=== PATIENT | female | born 1980 | race Caucasian/White ===

== ENCOUNTER → 2017-07-13 | Outpatient (CLI) | payer OTHER ==
[~2017-07-13] MED LIST: GADAVIST IV PRN
--- NOTE | 2017-07-13 15:09 | DIAGNOSTIC IMAGING REPORT ---
MRI OF THE BRAIN WITHOUT AND WITH IV CONTRAST SEIZURE PROTOCOL CLINICAL HISTORY: Seizure disorder. COMPARISON STUDY: None available at time of interpretation. TECHNIQUE: Utilizing a 1.5 Claudia magnet and dedicated coil, multiplanar, multiecho imaging of the brain was performed pre and postcontrast administration. IV administration of 9.6 mL of Gadavist contrast was uneventful. Thin cut coronal T2 imaging was performed according to seizure protocol. FINDINGS: There are no foci of restricted diffusion. No acute intracranial hemorrhage or midline shift is present. Note is made of a markedly enlarged posterior fossa which contains CSF. There is clinical indication with the fourth ventricle which is not significantly dilated. There is inversion of the torcula. 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 The optic nerves appear to be within normal limits. Flow-voids for the major intracranial vessels are present. There is no intracranial mass or pathologic enhancement. No foci of significant signal abnormality identified within the brain parenchyma. Orbits are unremarkable. There is minimal mucosal thickening of the maxillary sinuses. Calvarial signal is normal. IMPRESSION: 1. 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 2. No acute intracranial findings. 3. No intracranial mass or pathologic enhancement. Electronically signed by: Geronimo Chavez M.D. 07/13/2017 3:08 PM Dictated Date/Time: 07/13/2017 1:18 PM
== END | disposition home or self-care (01) ==
LOC: C.MRIBC 12:02
PROVIDERS: ATTEND Psychiatry & Neurology Neurology
DX: G40.909 Epilepsy, unspecified, not intractable, without status epilepticus (principal)

== ENCOUNTER → 2017-07-13 | Outpatient (CLI) | payer OTHER ==
--- NOTE | 2017-07-13 16:37 | EEG Procedure Note ---
EEG Procedure Note Date of Service Jul 13, 2017. Start / End Times Start Time: 2:53 PM End Time: 3:14 PM Referring Physician William Kumar History This is a 36-year-old female with diagnosis of epilepsy. EEG further evaluation of possible seizure etiology and medication management Description This is a 21 electrode EEG with a single channel dedicated to limited EKG. The electrodes were placed in accordance with the International 10-20 system. At the start of the recording the patient was in an awake state. Background was well organized and composed of symmetric mixed alpha and beta frequencies. There was a symmetric well-formed moderate amplitude 9-10 Hz posterior dominant rhythm that was reactive to eye opening and closure. Hyperventilation was not done. Intermittent photic stimulation at various frequencies produced no abnormalities. There was no state changes or sleep transients. Intermittently throughout the recording there was movement artifact. On video the patient was seen shaking her head slowly [id number]. There was no changes to the awake background and no epileptiform discharges. Interpretation This is a normal awake only routine EEG. There was no electrographic seizures or epileptiform discharges. Clinical Correlation A normal EEG does not rule out epilepsy if there is a strong clinical suspicion. Patient was seen on video slowly shaking her head [id number]. There was no EEG correlation and appeared to be behavioral
== END | disposition home or self-care (01) ==
LOC: C.NEUR 14:31
PROVIDERS: ATTEND Psychiatry & Neurology Neurology
DX: G40.909 Epilepsy, unspecified, not intractable, without status epilepticus (principal)